=== PATIENT | male | born 1975 | race American Indian/Alaskan Native ===

== ENCOUNTER 2017-03-18 11:14 | Emergency (ER) | payer BC ==
[2017-03-18 17:42] VITALS: BP 114/81
--- NOTE | 2017-03-18 18:02 | Emergency Department Report ---
Upper Extremity - HPI Chief Complaint: Extremity Problem,Nontraumatic Stated Complaint: BUMP ON LEFT SHOULDER Time Seen by Provider: 03/18/17 17:05 Upper Extremity: Left Elbow (radial head pain swelling ) Occurred When: 1 Day Mechanism: Other (denies fall injury or trauma ) Symptoms: Yes Swelling, No Pain with Movement, No Deformity, No Limited Range of Movement, No Numbness, No Weakness, No Bruising/Ecchymosis, No Laceration or Abrasion ED Review of Systems ROS: Stated complaint: BUMP ON LEFT SHOULDER Other details as noted in HPI Constitutional: denies: chills, fever Eyes: denies: eye pain, eye discharge, vision change ENT: denies: ear pain, throat pain Respiratory: denies: cough, shortness of breath, wheezing Cardiovascular: denies: chest pain, palpitations Endocrine: no symptoms reported Gastrointestinal: denies: abdominal pain, nausea, diarrhea Genitourinary: denies: urgency, dysuria Musculoskeletal: other (left elbow pain ). denies: back pain, joint swelling, arthralgia Skin: denies: rash, lesions Neurological: denies: headache, weakness, paresthesias Psychiatric: denies: anxiety, depression Hematological/Lymphatic: denies: easy bleeding, easy bruising ED Past Medical Hx - Past Medical History Previous Medical History?: Yes Hx Hypertension: Yes Hx Asthma: Yes - Surgical History Past Surgical History?: No - Social History Smoking Status: Never Smoker Substance Use Type: Alcohol - Medications Home Medications: Home Medications Medication Instructions Recorded Confirmed Last Taken Type Naproxen [Naprosyn TAB] 500 mg PO BID PRN #30 tablet 03/18/17 Unknown Rx Upper Extremity Exam - Exam General: Vital signs noted. No distress. Alert and acting appropriately. Head and Torso: No HEENT Abnormality, No Neck Tenderness, No Chest/Lungs Abnormality, No Abdominal Tenderness, No Back Tenderness Shoulder Exam: Yes Normal Range of Motion in Shoulder, No Shoulder Tenderness, No Clavicle Tenderness, No Shoulder Deformity, No AC Joint Tenderness Arm Exam: No Arm/Humerus Tenderness, No Arm Deformity Elbow: Yes Elbow Tenderness (left radial head tenderness swelling ), Yes Normal Range of Motion in Elbow, No Elbow Deformity Forearm: No Forearm Tenderness, No Forearm Deformity, No Pain with Pronation, No Pain with Supination Wrist: Yes Normal ROM in Wrist, No Wrist Tenderness, No Wrist Deformity, No Snuffbox Tenderness, No Pain with Axial Thumb Compression Hand: Yes Normal ROM in Digit(s), No Hand Tenderness, No Hand Deformity, No Digit Tenderness, No Digit(s) Deformity, No Tendon Dysfunction CMS Exam: Yes Normal Distal Pulses, Yes Normal Capillary Refill, Yes Normal Distal Sensation, No Broken Skin ED Course Vital Signs 03/18/17 03/18/17 11:17 17:35 Temperature 98.8 F Pulse Rate 96 H 65 Respiratory 16 16 Rate Blood Pressure 119/76 114/81 O2 Sat by Pulse 97 100 Oximetry ED Medical Decision Making - Medical Decision Making 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 pt verbalized agreement and understanding with discharge plan. Critical care attestation.: If time is entered above; I have spent that time in minutes in the direct care of this critically ill patient, excluding procedure time. ED Disposition Clinical Impression: Elbow pain, left Disposition: DC-01 TO HOME OR SELFCARE Is pt being admited?: No Does the pt Need Aspirin: No Condition: Good Instructions: Musculoskeletal Pain (ED) Prescriptions: Naproxen [Naprosyn TAB] 500 mg PO BID PRN #30 tablet PRN Reason: Pain Referrals: PRIMARY CARE, [Primary Care Provider] - 3-5 Days Forms: Work/School Release Form(ED) Time of Disposition: 18:04
--- NOTE | 2017-03-18 18:37 | XRay Report ---
FINAL REPORT EXAM: XR ELBOW 2V LT HISTORY: left elbow deformity TECHNIQUE: AP and lateral radiographs of the left elbow. PRIORS: None. FINDINGS: There is an ovoid area of subchondral lucency within lateral humeral condyle. No dislocation. Normal mineralization. No soft tissue abnormality. No joint effusion. IMPRESSION: Ovoid subchondral lucency within the lateral humeral condyle may represent an osteochondral lesion versus osteonecrosis or lateral epicondylitis. Consider further evaluation with MRI of the left elbow.
== END 2017-03-18 18:14 | disposition home or self-care (01) ==
LOC: ED 11:14
DX: M25.522 Pain in left elbow (principal); I10 Essential (primary) hypertension; J45.909 Unspecified asthma, uncomplicated
CPT/HCPCS: 99283